=== PATIENT | male | born 1980 | race Caucasian/White ===

== ENCOUNTER 2016-09-06 18:15 | Emergency (ER) | payer OTHER, BC ==
[~2016-09-06] VITALS: Ht 180.3 cm; Wt 89.4 kg
[2016-09-06 18:41] VITALS: TEMP 36.9; Ht 180.3 cm; Wt 89.4 kg
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
[2016-09-06 19:37] VITALS: BP 132/96; PULSE 88; O2SAT 98
== END 2016-09-06 19:38 | disposition home or self-care (01) ==
LOC: C.EDB 18:17 → C.EDD 19:38
DX: Z04.1 Encounter for examination and observation following transport accident (principal); V43.62XA Car passenger injured in collision with other type car in traffic accident, initial encounter